=== PATIENT | female | born 1985 | race Two or more races ===

== ENCOUNTER 2021-02-08 14:40 | Inpatient (IN) | payer MEDICARE, MEDICAID ==
[~2021-02-08] VITALS: Ht 157.5 cm; Wt 94.6 kg
[2021-02-08] MEDS ORDERED: methylPREDNISolone SOD SUCC 125 MG/2 ML VL IV ONE (16:00)
[2021-02-08 17:29] LABS: Albumin 3.1 g/dL (3.4-5.0); Calcium 6.3 mg/dL (8.5-10.1); Potassium 4.8 mmol/L (3.5-5.1)
[2021-02-08 17:36] LABS: Bilirubin, Total 0.5 mg/dL (0.2-1.0); CRP High Sensitivity 13.9 mg/dL (< 0.3); Total Protein 7.9 g/dL (6.4-8.2)
[2021-02-08 19:15] LABS: Basophils # (auto) 0.1 10 ^3/uL (0-0.2); Basophils % (auto) 0.7 % (0.0-2.0); Eosinophils # (auto) 0 10 ^3/uL (0-0.8); Eosinophils % (auto) 0.1 % (0.0-7.0); Hemoglobin 10.3 g/dL (12.2-16.2); Lymphocytes # (auto) 0.9 10 ^3/uL (0.4-5.4); Lymphocytes % (auto) 5.1 % (10.0-50.0); Mean Corpuscular Hemoglobin 27.7 pg (28.0-32.0); Mean Corpuscular Hgb Conc. 33.3 g/dL (32.0-36.0); Mean Corpuscular Volume 83.1 fL (80.0-100.0); Monocytes # (auto) 0.6 10 ^3/uL (0-1.3); Monocytes % (auto) 3.7 % (0.0-12.0); Neutrophils # (auto) 15.6 10 ^3/uL (1.6-8.6); Neutrophils % (auto) 90.4 % (37.0-80.0); Nucleated Red Blood Cells % 0.2 %; Red Blood Cells 3.73 10^6/uL (4.0-5.20); Red Cell Distribution Width 15.6 % (11.8-14.3); White Blood Cell 17.3 10^3/uL (4.4-10.8)
[2021-02-08] MEDS ORDERED: SODIUM BICARBONATE 650 MG TAB PO ONE (22:15)
[2021-02-08] MEDS ORDERED: DEXTROSE (50%) 50ML SYRG IV PRN (22:15)
[2021-02-08] MEDS ORDERED: MORPHINE SULFATE INJECTION 2 MG/ML SYRG IV PRN (22:15)
[2021-02-08] MEDS ORDERED: ONDANSETRON HCL 4 MG/2 ML VIAL IV PRN (22:15)
[2021-02-08] MEDS ORDERED: NITROGLYCERIN 0.4 MG SL TAB SL PRN (22:15)
[2021-02-08] MEDS ORDERED: TEMAZEPAM 15 MG CAP PO PRN (22:15)
[2021-02-09] VITALS (7 sets, daily range): BP systolic 126–196; BP diastolic 70–133
[2021-02-09] MEDS: guaiFENesin-DM 100/10mg/5ml SYR PO PRN ×2 (00:20→17:09)
[2021-02-09] MEDS: ACCU-CHEK COMFORT CURVE STRIP VI SCH ×4 (06:37→20:00)
[2021-02-09] MEDS: InsuLIN REG 1unit/0.01ml Soln (100units/ml) SC SCH ×4 (06:41→20:00)
[2021-02-09 08:09] LABS: Basophils # (auto) 0 10 ^3/uL (0-0.2); Basophils % (auto) 0.2 % (0.0-2.0); Eosinophils # (auto) 0 10 ^3/uL (0-0.8); Hematocrit 31.3 % (36.0-46.0); Hemoglobin 10.2 g/dL (12.2-16.2); Lymphocytes # (auto) 0.4 10 ^3/uL (0.4-5.4); Lymphocytes % (auto) 3.3 % (10.0-50.0); Mean Corpuscular Hemoglobin 27.6 pg (28.0-32.0); Mean Corpuscular Hgb Conc. 32.6 g/dL (32.0-36.0); Mean Corpuscular Volume 84.6 fL (80.0-100.0); Monocytes # (auto) 0.2 10 ^3/uL (0-1.3); Monocytes % (auto) 1.7 % (0.0-12.0); Neutrophils # (auto) 12.5 10 ^3/uL (1.6-8.6); Neutrophils % (auto) 94.8 % (37.0-80.0); Nucleated Red Blood Cells % 0.1 %; Red Blood Cells 3.71 10^6/uL (4.0-5.20); Red Cell Distribution Width 15.7 % (11.8-14.3); White Blood Cell 13.2 10^3/uL (4.4-10.8)
[2021-02-09 09:01] LABS: Albumin 2.6 g/dL (3.4-5.0); Bilirubin, Total 0.6 mg/dL (0.2-1.0); Total Protein 6.4 g/dL (6.4-8.2)
[2021-02-09 09:19] LABS: Potassium 5.9 mmol/L (3.5-5.1)
[2021-02-09] MEDS: ASPirin 81 mg TAB PO SCH (09:27)
[2021-02-09] MEDS: cefTRIAXone 1GM/50ML D5W 50 ML IV SCH (09:27)
[2021-02-09] MEDS: DexAMETHasone SOD PHOS 10MG/1ML VIAL INJ IV SCH (09:27)
[2021-02-09] MEDS: amLODIPine BESYLATE 5 MG TAB PO SCH (09:28)
[2021-02-09] MEDS: SEVELAMER 800 MG TAB PO SCH ×3 (09:28→17:09)
[2021-02-09] MEDS: ENOXAPARIN SOD 40 MG/0.4 ML SYRINGE SC SCH (09:29)
[2021-02-09] MEDS: ZINC SULFATE 220mg CAP or TAB PO SCH (09:29)
[2021-02-09] MEDS: ASCORBIC ACID 1,000 MG TAB PO SCH (09:29)
[2021-02-09] MEDS: CHOLECALCIFEROL (VITD3) 2,000 UNIT CAP/TAB PO SCH (09:29)
[2021-02-09] MEDS: SODIUM BICARBONATE 650 MG TAB PO SCH ×2 (09:30→22:06)
[2021-02-09] MEDS ORDERED: CALCIUM GLUC 1,000mg/50ml-NS 50 ML IV ONE (09:30)
[2021-02-09] MEDS ORDERED: SODIUM ZIRCONIUM CYCL 10 GM PAK PO ONE (09:30)
[2021-02-09] MEDS: PANTOPRAZOLE 40 MG TAB PO SCH (09:30)
[2021-02-09] MEDS ORDERED: InsuLIN REG 1unit/0.01ml Soln (100units/ml) IV ONE (09:30)
[2021-02-09] MEDS: AZITHROMYCIN 500MG/ 250ML 250 ML IV SCH (11:24)
[2021-02-09] MEDS ORDERED: DEXTROSE (50%) 50ML SYRG IV PRN (14:00)
[2021-02-09] MEDS ORDERED: AMLO-489 PO (15:35)
[2021-02-09] MEDS ORDERED: ATOR40TA52 PO (15:35)
[2021-02-09] MEDS ORDERED: INSUINJ37 SC (15:35)
[2021-02-09] MEDS ORDERED: SERT50TA19 PO (15:35)
[2021-02-09] MEDS ORDERED: METO5TAB5 PO (15:35)
[2021-02-09] MEDS ORDERED: FURO80TA3 PO (15:35)
[2021-02-09] MEDS ORDERED: LABE200T6 PO (15:35)
[2021-02-09] MEDS ORDERED: SEVE800T8 PO (15:35)
[2021-02-09] MEDS ORDERED: ASPI-498 PO (15:35)
[2021-02-09] MEDS ORDERED: REMDESIVIR PER PHARMACY 0 ML IV SCH (16:30)
[2021-02-09] MEDS ORDERED: REMDESIVIR 100mg 100 MG in SODIUM CHL 0.9% 230 ML IV ONE (18:00)
[2021-02-09] MEDS ORDERED: SODIUM CHL 0.9% 1000 ML BAG XX ONE (19:00)
[2021-02-09] MEDS ORDERED: EPOETIN ALFA-EPBX 10,000 UNIT/1ML VIAL SC ONE (21:00)
[2021-02-09] MEDS: SODIUM ZIRCONIUM CYCL 10 GM PAK PO SCH (22:00)
[2021-02-09] MEDS: ATORVASTATIN 20 MG TAB PO SCH (22:06)
[2021-02-09] MEDS: INSULIN LANTUS (GLARGINE) 1 /0.01ml (100units/ml) SC SCH (22:06)
[2021-02-09] MEDS: ALBUTEROL SULF HFA 90MCG INH 200DOSE IN PRN (22:50)
[2021-02-10] MEDS: ACCU-CHEK COMFORT CURVE STRIP VI SCH ×6 (00:16→19:55)
[2021-02-10] MEDS: InsuLIN REG 1unit/0.01ml Soln (100units/ml) SC SCH ×6 (00:33→19:56)
[2021-02-10 05:20] VITALS: BP 137/74
[2021-02-10] MEDS: SODIUM ZIRCONIUM CYCL 10 GM PAK PO SCH (06:00)
[2021-02-10 06:39] LABS: Basophils # (auto) 0.1 10 ^3/uL (0-0.2); Basophils % (auto) 0.4 % (0.0-2.0); Eosinophils # (auto) 0 10 ^3/uL (0-0.8); Hematocrit 34.2 % (36.0-46.0); Hemoglobin 11.5 g/dL (12.2-16.2); Lymphocytes # (auto) 0.6 10 ^3/uL (0.4-5.4); Lymphocytes % (auto) 2.7 % (10.0-50.0); Mean Corpuscular Hemoglobin 27.7 pg (28.0-32.0); Mean Corpuscular Hgb Conc. 33.6 g/dL (32.0-36.0); Mean Corpuscular Volume 82.4 fL (80.0-100.0); Monocytes # (auto) 0.8 10 ^3/uL (0-1.3); Monocytes % (auto) 3.7 % (0.0-12.0); Neutrophils # (auto) 19.3 10 ^3/uL (1.6-8.6); Neutrophils % (auto) 93.2 % (37.0-80.0); Nucleated Red Blood Cells % 0.2 %; Red Blood Cells 4.15 10^6/uL (4.0-5.20); Red Cell Distribution Width 15.9 % (11.8-14.3); White Blood Cell 20.7 10^3/uL (4.4-10.8)
[2021-02-10 06:57] LABS: Albumin 2.7 g/dL (3.4-5.0); Calcium 7.6 mg/dL (8.5-10.1); Magnesium 3.6 mg/dL (1.6-2.6); Potassium 4.2 mmol/L (3.5-5.1)
[2021-02-10 07:09] LABS: BUN/Creatinine Ratio 8.2; Bilirubin, Total 0.6 mg/dL (0.2-1.0); CRP High Sensitivity 14.5 mg/dL (< 0.3); Total Protein 7.5 g/dL (6.4-8.2)
[2021-02-10 07:18] LABS: Phosphorus 10.2 mg/dL (2.5-4.90)
[2021-02-10 09:00] VITALS: BP 156/76
[2021-02-10] MEDS: cefTRIAXone 1GM/50ML D5W 50 ML IV SCH (09:00)
[2021-02-10] MEDS: DexAMETHasone SOD PHOS 10MG/1ML VIAL INJ IV SCH (10:00)
[2021-02-10] MEDS: PANTOPRAZOLE 40 MG TAB PO SCH (11:35)
[2021-02-10] MEDS: CHOLECALCIFEROL (VITD3) 2,000 UNIT CAP/TAB PO SCH (11:35)
[2021-02-10] MEDS: ASPirin 81 mg TAB PO SCH (11:35)
[2021-02-10] MEDS: amLODIPine BESYLATE 5 MG TAB PO SCH (11:35)
[2021-02-10] MEDS: AZITHROMYCIN 500MG/ 250ML 250 ML IV SCH (11:35)
[2021-02-10] MEDS: SODIUM BICARBONATE 650 MG TAB PO SCH (11:35)
[2021-02-10] MEDS: ZINC SULFATE 220mg CAP or TAB PO SCH (11:35)
[2021-02-10] MEDS: SEVELAMER 800 MG TAB PO SCH ×2 (12:38→18:45)
[2021-02-10] MEDS: ENOXAPARIN SOD 40 MG/0.4 ML SYRINGE SC SCH (12:40)
[2021-02-10] MEDS: ASCORBIC ACID 1,000 MG TAB PO SCH (12:46)
[2021-02-10 13:00] VITALS: BP 166/86
[2021-02-10] MEDS ORDERED: REMDESIVIR 100mg 50 MG in SODIUM CHL 0.9% 240 ML IV SCH (15:00)
[2021-02-10] MEDS: cloNIDine HCL 0.1 MG TAB PO PRN (15:30)
[2021-02-10 15:37] LABS: Basophils # (auto) 0 10 ^3/uL (0-0.2); Basophils % (auto) 0.1 % (0.0-2.0); Eosinophils # (auto) 0 10 ^3/uL (0-0.8); Hematocrit 34.4 % (36.0-46.0); Hemoglobin 11.2 g/dL (12.2-16.2); Lymphocytes # (auto) 0.4 10 ^3/uL (0.4-5.4); Mean Corpuscular Hemoglobin 27.1 pg (28.0-32.0); Mean Corpuscular Hgb Conc. 32.5 g/dL (32.0-36.0); Mean Corpuscular Volume 83.5 fL (80.0-100.0); Monocytes # (auto) 0.7 10 ^3/uL (0-1.3); Monocytes % (auto) 3.2 % (0.0-12.0); Neutrophils # (auto) 20.5 10 ^3/uL (1.6-8.6); Neutrophils % (auto) 94.7 % (37.0-80.0); Red Blood Cells 4.12 10^6/uL (4.0-5.20); Red Cell Distribution Width 15.8 % (11.8-14.3); White Blood Cell 21.7 10^3/uL (4.4-10.8)
[2021-02-10] MEDS: REMDESIVIR 100mg 50 MG in SODIUM CHL 0.9% 90 ML IV SCH (16:30)
[2021-02-10 17:00] VITALS: BP 133/66
[2021-02-10 22:00] VITALS: BP 123/71
[2021-02-10] MEDS: INSULIN LANTUS (GLARGINE) 1 /0.01ml (100units/ml) SC SCH (22:12)
[2021-02-10] MEDS: ATORVASTATIN 20 MG TAB PO SCH (22:12)
[2021-02-10] MEDS: ALBUTEROL SULF HFA 90MCG INH 200DOSE IN PRN (22:56)
[2021-02-11] MEDS: ACCU-CHEK COMFORT CURVE STRIP VI SCH ×6 (00:21→21:36)
[2021-02-11] MEDS: InsuLIN REG 1unit/0.01ml Soln (100units/ml) SC SCH ×6 (00:21→21:41)
[2021-02-11 05:10] VITALS: BP 119/59
[2021-02-11] MEDS ORDERED: SODIUM CHL 0.9% 1000 ML BAG XX ONE (07:00)
[2021-02-11 08:00] VITALS: BP 144/85
[2021-02-11 08:05] LABS: Basophils # (auto) 0 10 ^3/uL (0-0.2); Basophils % (auto) 0.2 % (0.0-2.0); Eosinophils # (auto) 0 10 ^3/uL (0-0.8); Hematocrit 34.5 % (36.0-46.0); Hemoglobin 11.1 g/dL (12.2-16.2); Lymphocytes # (auto) 0.7 10 ^3/uL (0.4-5.4); Lymphocytes % (auto) 3.3 % (10.0-50.0); Mean Corpuscular Hemoglobin 26.9 pg (28.0-32.0); Mean Corpuscular Hgb Conc. 32.2 g/dL (32.0-36.0); Mean Corpuscular Volume 83.4 fL (80.0-100.0); Monocytes # (auto) 0.6 10 ^3/uL (0-1.3); Monocytes % (auto) 2.9 % (0.0-12.0); Neutrophils # (auto) 20.2 10 ^3/uL (1.6-8.6); Neutrophils % (auto) 93.6 % (37.0-80.0); Nucleated Red Blood Cells % 0.4 %; Red Blood Cells 4.14 10^6/uL (4.0-5.20); Red Cell Distribution Width 15.7 % (11.8-14.3); White Blood Cell 21.6 10^3/uL (4.4-10.8)
[2021-02-11 08:18] LABS: Potassium 4.2 mmol/L (3.5-5.1)
[2021-02-11 08:27] LABS: BUN/Creatinine Ratio 9.5; Calcium 7.1 mg/dL (8.5-10.1)
[2021-02-11 08:43] LABS: INR 1.03 (0.9-1.15)
[2021-02-11 08:47] LABS: Albumin 2.6 g/dL (3.4-5.0); Bilirubin, Direct 0.2 mg/dL (0-0.2)
[2021-02-11] MEDS: SEVELAMER 800 MG TAB PO SCH ×3 (08:48→18:00)
[2021-02-11 08:50] LABS: Bilirubin, Total 0.5 mg/dL (0.2-1.0)
[2021-02-11] MEDS: CHOLECALCIFEROL (VITD3) 2,000 UNIT CAP/TAB PO SCH (09:33)
[2021-02-11] MEDS: cefTRIAXone 1GM/50ML D5W 50 ML IV SCH (09:33)
[2021-02-11] MEDS: ASCORBIC ACID 1,000 MG TAB PO SCH (09:33)
[2021-02-11] MEDS: PANTOPRAZOLE 40 MG TAB PO SCH (09:34)
[2021-02-11] MEDS: ASPirin 81 mg TAB PO SCH (09:34)
[2021-02-11] MEDS: ZINC SULFATE 220mg CAP or TAB PO SCH (09:34)
[2021-02-11] MEDS: ENOXAPARIN SOD 40 MG/0.4 ML SYRINGE SC SCH (09:34)
[2021-02-11] MEDS: DexAMETHasone SOD PHOS 10MG/1ML VIAL INJ IV SCH (09:34)
[2021-02-11] MEDS: amLODIPine BESYLATE 5 MG TAB PO SCH (10:00)
[2021-02-11] MEDS: AZITHROMYCIN 500MG/ 250ML 250 ML IV SCH (10:45)
[2021-02-11] MEDS ORDERED: MEROPENEM 500MG IVPB 50 ML IV ONE (15:00)
[2021-02-11] MEDS: REMDESIVIR 100mg 50 MG in SODIUM CHL 0.9% 90 ML IV SCH (15:24)
[2021-02-11 18:00] VITALS: BP 155/90
[2021-02-11 20:08] VITALS: BP 155/90
[2021-02-11] MEDS: INSULIN LANTUS (GLARGINE) 1 /0.01ml (100units/ml) SC SCH (21:41)
[2021-02-11 22:00] VITALS: BP 165/82
[2021-02-12] MEDS: ACCU-CHEK COMFORT CURVE STRIP VI SCH ×6 (00:38→21:02)
[2021-02-12] MEDS: ACETAMINOPHEN 500 MG TAB PO PRN (00:39)
[2021-02-12] MEDS: InsuLIN REG 1unit/0.01ml Soln (100units/ml) SC SCH ×6 (00:49→21:03)
[2021-02-12 05:00] VITALS: BP 137/71
[2021-02-12] MEDS: ALBUTEROL SULF HFA 90MCG INH 200DOSE IN PRN ×2 (06:45→20:12)
[2021-02-12 07:37] LABS: Basophils # (auto) 0 10 ^3/uL (0-0.2); Basophils % (auto) 0.3 % (0.0-2.0); Eosinophils # (auto) 0 10 ^3/uL (0-0.8); Hematocrit 31.9 % (36.0-46.0); Hemoglobin 10.6 g/dL (12.2-16.2); Lymphocytes # (auto) 0.3 10 ^3/uL (0.4-5.4); Lymphocytes % (auto) 2.1 % (10.0-50.0); Mean Corpuscular Hemoglobin 27.3 pg (28.0-32.0); Mean Corpuscular Hgb Conc. 33.2 g/dL (32.0-36.0); Mean Corpuscular Volume 82.1 fL (80.0-100.0); Monocytes # (auto) 0.6 10 ^3/uL (0-1.3); Monocytes % (auto) 4.4 % (0.0-12.0); Neutrophils # (auto) 13.4 10 ^3/uL (1.6-8.6); Neutrophils % (auto) 93.2 % (37.0-80.0); Nucleated Red Blood Cells % 0.1 %; Red Blood Cells 3.89 10^6/uL (4.0-5.20); Red Cell Distribution Width 15.6 % (11.8-14.3); White Blood Cell 14.4 10^3/uL (4.4-10.8)
[2021-02-12 07:51] LABS: Albumin 2.6 g/dL (3.4-5.0); Calcium 6.7 mg/dL (8.5-10.1); Potassium 4.8 mmol/L (3.5-5.1)
[2021-02-12 07:54] LABS: BUN/Creatinine Ratio 9.8; Bilirubin, Total 0.5 mg/dL (0.2-1.0); Total Protein 6.4 g/dL (6.4-8.2)
[2021-02-12 08:21] LABS: CRP High Sensitivity 5.32 mg/dL (< 0.3)
[2021-02-12] MEDS: SEVELAMER 800 MG TAB PO SCH ×3 (08:40→17:57)
[2021-02-12 09:00] VITALS: BP 139/75
[2021-02-12] MEDS: ZINC SULFATE 220mg CAP or TAB PO SCH (09:55)
[2021-02-12] MEDS: ASPirin 81 mg TAB PO SCH (09:55)
[2021-02-12] MEDS: DexAMETHasone SOD PHOS 10MG/1ML VIAL INJ IV SCH (09:55)
[2021-02-12] MEDS: ASCORBIC ACID 1,000 MG TAB PO SCH (09:55)
[2021-02-12] MEDS: CHOLECALCIFEROL (VITD3) 2,000 UNIT CAP/TAB PO SCH (09:55)
[2021-02-12] MEDS: PANTOPRAZOLE 40 MG TAB PO SCH (09:56)
[2021-02-12] MEDS: MEROPENEM 500MG IVPB 50 ML IV SCH (09:56)
[2021-02-12] MEDS: ENOXAPARIN SOD 40 MG/0.4 ML SYRINGE SC SCH (09:56)
[2021-02-12] MEDS: amLODIPine BESYLATE 5 MG TAB PO SCH (10:00)
[2021-02-12] MEDS: NYSTATIN (MOUTH-THROAT) 500,000 UNITS/5 ML SUSP MT SCH ×3 (12:45→22:52)
[2021-02-12 12:48] VITALS: BP 153/82
[2021-02-12] MEDS: REMDESIVIR 100mg 50 MG in SODIUM CHL 0.9% 90 ML IV SCH (15:00)
[2021-02-12 17:00] VITALS: BP 165/90
[2021-02-12 22:00] VITALS: BP 152/83
[2021-02-12] MEDS: INSULIN LANTUS (GLARGINE) 1 /0.01ml (100units/ml) SC SCH (23:02)
[2021-02-13] MEDS: ACCU-CHEK COMFORT CURVE STRIP VI SCH ×6 (00:42→20:00)
[2021-02-13] MEDS: InsuLIN REG 1unit/0.01ml Soln (100units/ml) SC SCH ×6 (00:45→20:00)
[2021-02-13 05:00] VITALS: BP 150/79
[2021-02-13] MEDS: ALBUTEROL SULF HFA 90MCG INH 200DOSE IN PRN ×2 (06:10→19:01)
[2021-02-13] MEDS: NYSTATIN (MOUTH-THROAT) 500,000 UNITS/5 ML SUSP MT SCH ×4 (06:28→21:05)
[2021-02-13 08:24] LABS: Potassium 5.1 mmol/L (3.5-5.1)
[2021-02-13 08:37] LABS: Albumin 2.6 g/dL (3.4-5.0); BUN/Creatinine Ratio 9.7; Bilirubin, Total 0.4 mg/dL (0.2-1.0); Calcium 6.8 mg/dL (8.5-10.1); Total Protein 6.6 g/dL (6.4-8.2)
[2021-02-13 09:00] VITALS: BP 140/72
[2021-02-13] MEDS: SEVELAMER 800 MG TAB PO SCH ×3 (09:25→18:04)
[2021-02-13] MEDS: MEROPENEM 500MG IVPB 50 ML IV SCH (09:58)
[2021-02-13] MEDS: ZINC SULFATE 220mg CAP or TAB PO SCH (09:58)
[2021-02-13] MEDS: ASPirin 81 mg TAB PO SCH (09:58)
[2021-02-13] MEDS: PANTOPRAZOLE 40 MG TAB PO SCH (09:58)
[2021-02-13] MEDS: ENOXAPARIN SOD 40 MG/0.4 ML SYRINGE SC SCH (09:58)
[2021-02-13] MEDS: CHOLECALCIFEROL (VITD3) 2,000 UNIT CAP/TAB PO SCH (09:58)
[2021-02-13] MEDS: DexAMETHasone SOD PHOS 10MG/1ML VIAL INJ IV SCH (09:59)
[2021-02-13] MEDS: ASCORBIC ACID 1,000 MG TAB PO SCH (09:59)
[2021-02-13] MEDS: amLODIPine BESYLATE 5 MG TAB PO SCH (10:00)
[2021-02-13 13:00] VITALS: BP 159/76
[2021-02-13] MEDS: REMDESIVIR 100mg 50 MG in SODIUM CHL 0.9% 90 ML IV SCH (15:51)
[2021-02-13 17:00] VITALS: BP 151/71
[2021-02-13] MEDS: INSULIN LANTUS (GLARGINE) 1 /0.01ml (100units/ml) SC SCH (21:05)
[2021-02-13 22:00] VITALS: BP 155/82
[2021-02-14] MEDS: ACETAMINOPHEN 500 MG TAB PO PRN (00:04)
[2021-02-14] MEDS: ACCU-CHEK COMFORT CURVE STRIP VI SCH ×6 (00:04→22:16)
[2021-02-14] MEDS: InsuLIN REG 1unit/0.01ml Soln (100units/ml) SC SCH ×7 (00:13→22:15)
[2021-02-14 05:00] VITALS: BP 160/93
[2021-02-14 05:15] LABS: Potassium 5.4 mmol/L (3.5-5.1)
[2021-02-14 05:28] LABS: Albumin 2.7 g/dL (3.4-5.0); BUN/Creatinine Ratio 11.1; Bilirubin, Total 0.5 mg/dL (0.2-1.0); Calcium 6.6 mg/dL (8.5-10.1); Total Protein 6.5 g/dL (6.4-8.2)
[2021-02-14] MEDS: NYSTATIN (MOUTH-THROAT) 500,000 UNITS/5 ML SUSP MT SCH ×5 (05:38→22:16)
[2021-02-14] MEDS: cloNIDine HCL 0.1 MG TAB PO PRN ×2 (05:39→18:48)
[2021-02-14] MEDS: SEVELAMER 800 MG TAB PO SCH ×3 (08:38→18:00)
[2021-02-14 09:00] VITALS: BP 163/95
[2021-02-14] MEDS: amLODIPine BESYLATE 5 MG TAB PO SCH (10:00)
[2021-02-14 10:08] LABS: Basophils # (auto) 0.2 10 ^3/uL (0-0.2); Basophils % (auto) 0.7 % (0.0-2.0); Eosinophils # (auto) 1.2 10 ^3/uL (0-0.8); Hemoglobin 11.4 g/dL (12.2-16.2); Lymphocytes # (auto) 1.3 10 ^3/uL (0.4-5.4); Lymphocytes % (auto) 5.4 % (10.0-50.0); Mean Corpuscular Hemoglobin 27.5 pg (28.0-32.0); Mean Corpuscular Hgb Conc. 31.6 g/dL (32.0-36.0); Mean Corpuscular Volume 86.9 fL (80.0-100.0); Monocytes # (auto) 1.3 10 ^3/uL (0-1.3); Monocytes % (auto) 5.4 % (0.0-12.0); Neutrophils # (auto) 19.7 10 ^3/uL (1.6-8.6); Neutrophils % (auto) 83.5 % (37.0-80.0); Nucleated Red Blood Cells % 0.5 %; Red Blood Cells 4.14 10^6/uL (4.0-5.20); Red Cell Distribution Width 15.9 % (11.8-14.3); White Blood Cell 23.6 10^3/uL (4.4-10.8)
[2021-02-14] MEDS: MEROPENEM 500MG IVPB 50 ML IV SCH (10:13)
[2021-02-14] MEDS: DexAMETHasone SOD PHOS 10MG/1ML VIAL INJ IV SCH (10:14)
[2021-02-14] MEDS: PANTOPRAZOLE 40 MG TAB PO SCH (10:15)
[2021-02-14] MEDS: ZINC SULFATE 220mg CAP or TAB PO SCH (10:15)
[2021-02-14] MEDS: ENOXAPARIN SOD 40 MG/0.4 ML SYRINGE SC SCH (10:15)
[2021-02-14] MEDS: ASCORBIC ACID 1,000 MG TAB PO SCH (10:15)
[2021-02-14] MEDS: ASPirin 81 mg TAB PO SCH (10:15)
[2021-02-14] MEDS: CHOLECALCIFEROL (VITD3) 2,000 UNIT CAP/TAB PO SCH (10:15)
[2021-02-14 13:00] VITALS: BP 172/93
[2021-02-14 17:00] VITALS: BP 164/91
[2021-02-14] MEDS: INSULIN LANTUS (GLARGINE) 1 /0.01ml (100units/ml) SC SCH (22:17)
[2021-02-15] MEDS: cloNIDine HCL 0.1 MG TAB PO PRN (01:16)
[2021-02-15] MEDS: ACCU-CHEK COMFORT CURVE STRIP VI SCH ×4 (04:00→12:27)
[2021-02-15] MEDS: InsuLIN REG 1unit/0.01ml Soln (100units/ml) SC SCH ×4 (04:38→12:24)
[2021-02-15 05:51] VITALS: BP 160/84
[2021-02-15] MEDS: NYSTATIN (MOUTH-THROAT) 500,000 UNITS/5 ML SUSP MT SCH ×2 (06:00→11:01)
[2021-02-15 07:11] LABS: Basophils # (auto) 0 10 ^3/uL (0-0.2); Basophils % (auto) 0.2 % (0.0-2.0); Eosinophils # (auto) 0 10 ^3/uL (0-0.8); Hematocrit 32.6 % (36.0-46.0); Hemoglobin 10.7 g/dL (12.2-16.2); Lymphocytes # (auto) 0.5 10 ^3/uL (0.4-5.4); Lymphocytes % (auto) 3.4 % (10.0-50.0); Mean Corpuscular Hgb Conc. 32.8 g/dL (32.0-36.0); Mean Corpuscular Volume 82.4 fL (80.0-100.0); Monocytes # (auto) 1.1 10 ^3/uL (0-1.3); Monocytes % (auto) 6.8 % (0.0-12.0); Neutrophils # (auto) 14.3 10 ^3/uL (1.6-8.6); Neutrophils % (auto) 89.6 % (37.0-80.0); Red Blood Cells 3.95 10^6/uL (4.0-5.20); Red Cell Distribution Width 15.4 % (11.8-14.3)
[2021-02-15 07:12] LABS: Potassium 4.6 mmol/L (3.5-5.1)
[2021-02-15 07:29] LABS: BUN/Creatinine Ratio 9.9; CRP High Sensitivity 1.76 mg/dL (< 0.3); Calcium 6.9 mg/dL (8.5-10.1); Magnesium 3.7 mg/dL (1.6-2.6)
[2021-02-15] MEDS: ALBUTEROL SULF HFA 90MCG INH 200DOSE IN PRN (08:14)
[2021-02-15] MEDS: SEVELAMER 800 MG TAB PO SCH ×2 (08:21→12:23)
[2021-02-15 09:00] VITALS: BP 155/83
[2021-02-15] MEDS: ZINC SULFATE 220mg CAP or TAB PO SCH (09:21)
[2021-02-15] MEDS: ASPirin 81 mg TAB PO SCH (09:21)
[2021-02-15] MEDS: CHOLECALCIFEROL (VITD3) 2,000 UNIT CAP/TAB PO SCH (09:22)
[2021-02-15] MEDS: PANTOPRAZOLE 40 MG TAB PO SCH (09:22)
[2021-02-15] MEDS: ENOXAPARIN SOD 40 MG/0.4 ML SYRINGE SC SCH (09:22)
[2021-02-15] MEDS: ASCORBIC ACID 1,000 MG TAB PO SCH (09:22)
[2021-02-15] MEDS: amLODIPine BESYLATE 5 MG TAB PO SCH (09:27)
[2021-02-15] MEDS ORDERED: CARVEDILOL 3.125 MG TAB PO SCH (10:00)
[2021-02-15] MEDS ORDERED: DexAMETHasone 4 MG TAB PO SCH (10:00)
[2021-02-15] MEDS: MEROPENEM 500MG IVPB 50 ML IV SCH (10:37)
[2021-02-15 12:02] VITALS: BP 145/83
[2021-02-15] MEDS ORDERED: CHOL20007 PO (12:23)
[2021-02-15] MEDS ORDERED: ASCO10003 PO (12:23)
[2021-02-15] MEDS ORDERED: DEX4T PO (12:23)
[2021-02-15] MEDS ORDERED: ZINC220T6 PO (12:23)
[2021-02-15] MEDS ORDERED: DOCU-94 PO (12:23)
[2021-02-15] MEDS ORDERED: DOXY-286 PO (12:23)
[2021-02-15] MEDS ORDERED: ALBUAER3 IN (12:23)
[2021-02-15] MEDS ORDERED: hydrALAZINE HCL 25 MG TAB PO SCH (14:00)
== END 2021-02-15 14:16 | disposition home or self-care (01) | DRG 871 ==
LOC: EDBD 14:40 → ER 14:40 → TELE 22:09 → TELE-WESTW 23:20
PROVIDERS: ADMIT Nurse Practitioner; ATTEND Internal Medicine
PROC: XW033E5 Introduction of Remdesivir Anti-infective into Peripheral Vein, Percutaneous Approach, New Technology Group 5 (ICD-10-PCS; principal; 2021-02-09)
PROC: 5A1D70Z Performance of Urinary Filtration, Intermittent, Less than 6 Hours Per Day (ICD-10-PCS; 2021-02-09)
PROC: 5A1D70Z Performance of Urinary Filtration, Intermittent, Less than 6 Hours Per Day (ICD-10-PCS; 2021-02-14)
DX: A41.89 Other specified sepsis (principal); U07.1 COVID-19; J12.82 Pneumonia due to coronavirus disease 2019; J96.00 Acute respiratory failure, unspecified whether with hypoxia or hypercapnia; N18.6 End stage renal disease; I50.43 Acute on chronic combined systolic (congestive) and diastolic (congestive) heart failure; I21.A1 Myocardial infarction type 2; E87.1 Hypo-osmolality and hyponatremia; I13.2 Hypertensive heart and chronic kidney disease with heart failure and with stage 5 chronic kidney disease, or end stage renal disease; D63.1 Anemia in chronic kidney disease; E11.22 Type 2 diabetes mellitus with diabetic chronic kidney disease; E55.9 Vitamin D deficiency, unspecified; E66.01 Morbid (severe) obesity due to excess calories; E87.5 Hyperkalemia; E87.8 Other disorders of electrolyte and fluid balance, not elsewhere classified; K59.00 Constipation, unspecified; T38.0X5A Adverse effect of glucocorticoids and synthetic analogues, initial encounter; E11.40 Type 2 diabetes mellitus with diabetic neuropathy, unspecified; D89.839 Cytokine release syndrome, grade unspecified; Y92.89 Other specified places as the place of occurrence of the external cause; Z99.2 Dependence on renal dialysis; Z83.3 Family history of diabetes mellitus; Z23 Encounter for immunization
CPT/HCPCS: 36415; 71045; 71250; 74176; 80048; 80053; 80061; 80076; 82306; 82728; 82962; 83036; 83605; 83615; 83735; 83880; 83970; 84100; 84132; 84484; 84702; 85025; 85379; 85610; 86141; 87426; 90935; 93306; 93970; 94640; 96374; 99291; G0378; J0696; J1100; J1815; J2185